=== PATIENT | female | born 1975 | race Caucasian/White ===

== ENCOUNTER 2025-03-14 06:13 | Inpatient (IN) | payer OTHER ==
[2025-03-10 17:57] VITALS: BMI 44.1
[2025-03-14 08:40] LABS: MCHC 33.3 g/dl (32.2-35.5); MEAN CELL VOLUME 94.3 fl (79.4-94.8); MEAN PLT VOLUME 9.8 fl (9.4-12.3); RDW 14.6 % (12.2-17.1)
[2025-03-14] MEDS ORDERED: MIDAZOLAM HCL 2 MG/2 ML SINGLE DOSE VIAL ONE ×3 (10:05→10:52)
[2025-03-14] MEDS ORDERED: ROCURONIUM BROMIDE 50 MG/5 ML SYRINGE ONE ×4 (10:05→12:28)
[2025-03-14] MEDS ORDERED: PROPOFOL 20 ML ONE ×5 (10:05→12:35)
[2025-03-14] MEDS ORDERED: ALBUTEROL SO4 HFA INHALER IH ONE (10:34)
[2025-03-14] MEDS ORDERED: GLYCOPYRROLATE 0.2 MG/1 ML VIAL ONE ×2 (10:34→12:44)
[2025-03-14] MEDS ORDERED: LIDOCAINE HCL/PF 2% SDV 5ML VIAL ONE (10:56)
[2025-03-14] MEDS ORDERED: ONDANSETRON 4 MG/2 ML VIAL ONE ×2 (10:56→12:44)
[2025-03-14] MEDS ORDERED: DEXAMETHASONE SOD PHOSPHATE 4 MG/1 ML VIAL ONE (10:56)
[2025-03-14] MEDS ORDERED: ACETAMINOPHEN INJECTION 100 ML ONE (11:33)
[2025-03-14] MEDS ORDERED: NEOSTIGMINE METHYLSULFATE 0.5 MG/1 ML - 10 ML MDV ONE (12:44)
[2025-03-14] MEDS ORDERED: IBUPROFEN 800 MG/8 ML IJ IVPB PRN (13:28)
[2025-03-14] MEDS ORDERED: ONDANSETRON 4 MG/2 ML VIAL IVPUSH PRN (13:28)
[2025-03-14] MEDS: LACTATED RINGERS SOLUTION 1,000 ML IV SCH (13:37)
[2025-03-14] MEDS: ELECTROLYTE-148 SOLN 1,000 ML IV SCH (15:48)
[2025-03-14] MEDS: CEFAZOLIN SODIUM 2 GM in DEXTROSE 5%-WATER 100 ML IVPB SCH (17:07)
[2025-03-14] MEDS: ONDANSETRON 4 MG/2 ML VIAL IVPUSH PRN (17:22)
[2025-03-14] MEDS: ACETAMINOPHEN 1000 MG/100 ML BAG IVPB PRN (17:51)
[2025-03-14] MEDS: SIMETHICONE 80 MG TAB.CHEW (FP) PO PRN (22:15)
[2025-03-15] MEDS: DOCUSATE SODIUM 100 MG CAPSULE (FP) PO SCH (09:12)
[2025-03-15] MEDS: ENOXAPARIN NA (PORCINE) 40 MG/0.4 ML DISP.SYRIN SQ SCH (09:13)
[2025-03-15 09:17] LABS: MCHC 32.8 g/dl (32.2-35.5); MEAN CELL VOLUME 96.6 fl (79.4-94.8); MEAN PLT VOLUME 10.0 fl (9.4-12.3); RDW 14.6 % (12.2-17.1)
[2025-03-15 09:44] LABS: CO2 28.0 mmol/L (21-32); GLUCOSE,RANDOM 114.0 mg/dL (74-106)
[2025-03-15 09:47] LABS: SGOT/AST 9.0 U/L (15-37); SGPT/ALT 33.0 U/L (13-61)
[2025-03-15 09:48] LABS: CREATININE 0.7 mg/dL (0.55-1.3)
[2025-03-15 09:49] LABS: TOT PROT 6.0 g/dl (6.4-8.2)
[2025-03-15 09:50] LABS: ALK PHOS 79.0 U/L (45-117)
[2025-03-15] MEDS: PANTOPRAZOLE 20 MG TABLET PO SCH (15:39)
[2025-03-15] MEDS: IBUPROFEN 600 MG TABLET (FP) PO PRN (17:57)
[2025-03-15] MEDS: EZETIMIBE 10 MG TABLET (FP) PO SCH (21:28)
[2025-03-15] MEDS: LISINOPRIL 10 MG TABLET PO SCH (21:28)
[2025-03-15 22:15] VITALS: RESP 18
[2025-03-16] MEDS ORDERED: LISINOPRIL 10 MG TABLET PO SCH (10:00)
[2025-03-16 13:13] VITALS: BP 132/86; PULSE 85; TEMP 98.1
== END 2025-03-16 13:55 | disposition home or self-care (01) | DRG 742 ==
LOC: J2C 06:13 → J3W 16:08
PROVIDERS: ADMIT Obstetrics & Gynecology; ATTEND Obstetrics & Gynecology
PROC: 0DNW0ZZ Release Peritoneum, Open Approach (ICD-10-PCS; 2025-03-14)
PROC: 0UT90ZL Resection of Uterus, Supracervical, Open Approach (ICD-10-PCS; principal; 2025-03-14 10:00)
PROC: 0UT70ZZ Resection of Bilateral Fallopian Tubes, Open Approach (ICD-10-PCS; 2025-03-14 10:00)
DX: D25.1 Intramural leiomyoma of uterus (principal); Z68.41 Body mass index [BMI] 40.0-44.9, adult; N73.6 Female pelvic peritoneal adhesions (postinfective); N92.1 Excessive and frequent menstruation with irregular cycle; R10.2 Pelvic and perineal pain; E66.9 Obesity, unspecified
CPT/HCPCS: 36415; 80053; 81025; 85027; 86850; 86900; 86901; 88305-TC; 88309-TC; 94760